=== PATIENT | female | born 1965 | race Two or more races ===

== ENCOUNTER 2020-02-05 17:05 | Emergency (ER) | payer MEDICAID ==
[~2020-02-05] VITALS: Ht 165.1 cm; Wt 106.0 kg
--- NOTE | 2020-02-05 17:36 | NUR ---
PT CAME IN CO OF BILAT FLANK PAIN X 3 DAYS. SAYS THERE WAS A LITTLE BIT OF BLOOD IN HER URINE. PT UNABLE TO PROVIDE URINE SAMPLE AT THIS TIME. PT TO RETRY IN 10 MINUTES
[2020-02-05 18:40] LABS: BASOPHILS # (AUTO) 0.05 x10^3/uL (0-0.1); BASOPHILS % (AUTO) 0 % (0-1); EOSINOPHILS # (AUTO) 0.28 x10^3/uL (0-0.4); EOSINOPHILS % (AUTO) 2 % (1-7); LYMPHOCYTES # (AUTO) 2.53 x10^3/uL (1-3.4); LYMPHOCYTES % (AUTO) 22 % (22-44); MD NO; MEAN CORPUSCULAR HEMOGLOBIN 27.8 pg (27.0-34.8); MEAN CORPUSCULAR HGB CONC 32.9 g/dL (32.4-35.8); MEAN CORPUSCULAR VOLUME 84.4 fL (80-100); MEAN PLATELET VOLUME 8.1 fL (7.4-10.4); MONOCYTES # (AUTO) 0.48 x10^3/uL (0.2-0.8); MONOCYTES % (AUTO) 4 % (2-9); NEUTROPHILS # (AUTO) 8.17 x10^3/uL (1.8-6.8); NEUTROPHILS % (AUTO) 71 % (42-75); PLATELET COUNT 353 x10^3/uL (130-400); RED BLOOD COUNT 5.13 x10^6/uL (3.82-5.3)
[2020-02-05 18:51] LABS: ALANINE AMINOTRANSFERASE 26 U/L (12-78); ALBUMIN 3.8 g/dL (3.4-5.0); ANION GAP 8 mmol/L (5-15); CALCIUM 9.1 mg/dL (8.5-10.1); CHLORIDE 105 mmol/L (98-107); CREATININE 0.71 mg/dL (0.55-1.02)
[2020-02-05 18:51] LABS: MICROSCOPIC AUTO
[2020-02-05 18:52] LABS: CULTURE INDICATED? YES
[2020-02-05 18:53] LABS: ALKALINE PHOSPHATASE 113 U/L (45-117); BILIRUBIN,TOTAL 0.6 mg/dL (0.2-1.0); TOTAL PROTEIN 7.7 g/dL (6.4-8.2)
[2020-02-05 20:13] VITALS: BP 126/82
== END 2020-02-05 20:36 | disposition home or self-care (01) ==
LOC: ED 19:28
DX: S39.012A Strain of muscle, fascia and tendon of lower back, initial encounter (principal); R10.9 Unspecified abdominal pain; E11.9 Type 2 diabetes mellitus without complications; X58.XXXA Exposure to other specified factors, initial encounter; Y93.89 Activity, other specified; Y92.89 Other specified places as the place of occurrence of the external cause; Y99.8 Other external cause status
CPT/HCPCS: 36415; 74176; 80053; 81001; 85025; 87086; 99284

== ENCOUNTER 2021-01-19 18:20 | Emergency (ER) | payer MEDICAID ==
[~2021-01-19] VITALS: Ht 165.1 cm; Wt 104.7 kg
== END 2021-01-19 19:29 | disposition home or self-care (01) ==
LOC: ED 18:50
DX: L98.9 Disorder of the skin and subcutaneous tissue, unspecified (principal); E11.9 Type 2 diabetes mellitus without complications
CPT/HCPCS: 99283